=== PATIENT | male | born 1960 | race Caucasian/White ===

== ENCOUNTER → 2017-10-06 | Outpatient (CLI) | payer OTHER ==
[2014-04-21 21:39] VITALS: BP 133/86
[~2017-10-06] MED LIST: NS 100 ML IV 100 ML IV ONE
--- NOTE | 2017-10-06 09:25 | CT ---
HISTORY: Follow-up for nodule in left lung. Study: Computed tomography of the chest: Multiple axial images were obtained throughout the chest af ter the injection of intravascular contrast per standard protocol. Radiation dose reduction technique s utilized. Comparison: CT scan from 03/31/2016 Findings: The lung parenchyma demonstrates minimal hypostatic changes in both lung bases, right greater than le ft. The left lower lobe pulmonary nodule is again identified and measures approximately 5 mm in maxim um dimension. This is not felt be significantly changed when compared to the prior examination. No ne w pulmonary nodules are identified. The thyroid as visualized normal. I see no evidence of supraclavicular adenopathy. No evidence of axi llary adenopathy is identified. A few small mediastinal lymph nodes are present, none meeting criteri a for pathologic enlargement. The aortic arch shows minimal atherosclerotic change. The aortic root i s borderline dilated at 3.4 cm. The pulmonary artery is normal. The heart size is normal. Coronary ar terial calcification is noted in the LAD and circumflex. No appreciable pericardial effusion is noted . The liver demonstrates a mildly complex hypodense lesion in the left lobe measuring approximately 1.5 x 1.4 cm, unchanged. This most likely is a cyst. The gallbladder is visualized is normal. The visual ized kidneys are normal the spleen is normal the pancreas is visualized is normal. No appreciable servando iary duct dilatation is noted. Mild thoracic spondylosis is noted. IMPRESSION: 1. Stable appearance of the left lower lobe pulmonary nodule. As this lesion has remained stable sinc e August 2014 no further evaluation is necessary. 2. Stable appearance of the hypodense lesion within the liver. 3. Mild coronary arterial calcification. Reported By:
== END ==
LOC: RAD 08:02
PROVIDERS: ATTEND Internal Medicine
DX: R10.12 Left upper quadrant pain (principal); R91.1 Solitary pulmonary nodule
CPT/HCPCS: 71260; A4222

== ENCOUNTER → 2017-10-06 | Outpatient (CLI) | payer SELFPAY ==
[2014-04-21 21:39] VITALS: BP 133/86
--- NOTE | 2017-10-06 10:12 | CT ---
CORONARY CALCIUM SCORE CLINICAL INDICATION: Screening. COMPARISON: None PROCEDURE: Gated images of the coronary arteries. Coronary artery calcium scoring was performed. FINDINGS: Coronary calcium scoring - 371 LM: 0 LAD: 164 LCX: 189 RCA: 18 IMPRESSION: 1. Calcium score of 371. This places the patient at approximately the 75th-90th percentile for males of equivalent age. Definite, at least moderate atherosclerotic plaque. Mild coronary artery disease h ighly likely with significant narrowings possible. Reported By:
== END ==
LOC: RAD 08:18
PROVIDERS: ATTEND Internal Medicine
DX: Z13.6 Encounter for screening for cardiovascular disorders (principal)

== ENCOUNTER → 2017-10-24 | Outpatient (CLI) | payer OTHER ==
[2014-04-21 21:39] VITALS: BP 133/86
[~2017-10-24] MED LIST changes: -NS 100 ML IV 100 ML IV ONE; +NS 500 ML IV 500 ML IV ONE
[2017-10-24 09:07] LABS: CREATININE 1.16 mg/dL (0.70-1.30)
--- NOTE | 2017-10-25 10:35 | CT ---
CT OF THE ABDOMEN AND PELVIS WITH CONTRAST HISTORY: Left abdominal pain for several months. Comparison: 02/22/2014 Technique: Multiple axial images of the abdomen and pelvis were obtained from the lung bases to the pubic symphy sis follow the administration of IV contrast as well as oral contrast. Dose reduction techniques inc luding Automated Exposure Control (AEC) and adjustment of mA and kV were utlized. Findings: The heart is normal in size. There is no pericardial effusion. Lung bases are clear without focal con solidation, pleural effusion or pneumothorax. 5 mm left lower lobe pulmonary nodule on series 4, carmel ge 6 is stable from prior. Liver and spleen are normal in size, enhancement characteristics and contour. Redemonstration of smal l cystic lesion in the liver on series 4, image 24 measuring 1.5 cm which has enlarged slightly since prior where it measured 1.3 cm. No abnormal enhancement is visible. The portal vein is patent. No du ctal dilitation. Gallbladder is present. No calcified gallstones or gallbladder wall thickening. The pancreas is unremarkable. Adrenal glands are normal. Kidneys enhance symmetrically without hydronephr osis or nephrolithiasis. Redemonstration of simple left renal cyst No bowel obstruction or inflammation. Mild diverticulosis without focal inflammation. No abnormal greg earing mesenteric or retroperitoneal lymph nodes. No free fluid or fluid collections. The bladder is normal in appearance. Prostate not enlarged. No free fluid or abnormal pelvic lymph no carlos. No aggressive osseous lesions. IMPRESSION: 1. No source of patient's left abdominal pain is identified on this examination. 2. Stable left lower lobe pulmonary nodule which does not require further follow up. 3. Other incidental as above. Reported By:
== END ==
LOC: RAD 08:22
PROVIDERS: ATTEND Internal Medicine
DX: R10.12 Left upper quadrant pain (principal); R91.1 Solitary pulmonary nodule
CPT/HCPCS: 36415; 74177; 82565; 84520; A4222